=== PATIENT | male | born 1990 | race Caucasian/White ===

== ENCOUNTER 2023-04-10 18:12 | Emergency (ER) | payer OTHER, SELFPAY ==
[2023-04-10] VITALS (17 sets, daily range): BP systolic 123–149; BP diastolic 71–101; PULSE 62–90; RESP 14–24; TEMP 36.7; O2SAT 96–100; BMI 36.9
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
--- NOTE | 2023-04-10 18:32 | ECG_ITS ---
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
[2023-04-10] MEDS: ONDANSETRON 4 MG RAPDIS TABLET SL (18:46)
[2023-04-10] MEDS: MORPHINE SULFATE 2 MG/ML SYRINGE IM (18:46)
[2023-04-10 18:52] LABS: Basophils Percent Auto 0.4 % (0.2-2.0); Eosinophils Absolute Auto 0.3 10^3/uL (0.0-0.7); Eosinophils Percent Auto 3.1 % (0.9-7.0); Hematocrit 45.2 % (42.0-54.0); Hemoglobin 15.2 g/dL (14.0-18.0); Immature Granulocytes Abs Auto 0.03 10^3/uL (0.00-0.03); Immature Granulocytes Pct Auto 0.3 % (0.0-0.5); Lymphocytes Absolute Auto 2.6 10^3/uL (1.2-3.8); Lymphocytes Percent Auto 28.2 % (20.5-60.0); Mean Corpuscular HGB Conc 33.6 g/dL (29.9-35.2); Mean Corpuscular Hemoglobin 29.3 pg (25.9-34.0); Mean Corpuscular Volume 87.3 fL (80.0-94.0); Mean Platelet Volume 10.5 fL (9.5-13.5); Monocytes Absolute Auto 0.6 10^3/uL (0.3-0.8); Monocytes Percent Auto 6.8 % (1.7-12.0); Neutrophils Absolute Auto 5.6 10^3/uL (1.4-6.5); Neutrophils Percent Auto 61.2 % (43.0-75.0); Platelet Count 243 10^3/uL (150-450); Red Blood Count 5.18 10^6/uL (4.70-6.10); Red Cell Distribution Width 13.4 % (11.0-15.0); White Blood Count 9.2 10^3/uL (4.0-11.0)
[2023-04-10 19:14] LABS: Anion Gap 11.6; BUN Creatinine Ratio 14.9; Carbon Dioxide 26.9 mmol/L (21.0-32.0); Chloride 106 mmol/L (98-107); Estimated GFR (African America >60 (>=60); Estimated GFR (Non-African Ame >60 (>=60); Glucose 97 mg/dL (74-106); Potassium 3.5 mmol/L (3.5-5.1); Sodium 141 mmol/L (136-145); Troponin I High Sensitivity 6.7 pg/mL (4.0-76.1)
[2023-04-10] MEDS: KETOROLAC TROMETHAMINE 30 MG/ML VIAL 15 MG IM (21:15)
[2023-04-10] MEDS: ORPHENADRINE 60 MG/ 2 ML VIAL IM (21:16)
== END 2023-04-10 21:24 | disposition home or self-care (01) ==
PROVIDERS: Physician Assistant; Emergency Provider Emergency Medicine; PCP Family Medicine
DX: S46.812A Strain of other muscles, fascia and tendons at shoulder and upper arm level, left arm, initial encounter (principal); V49.9XXA Car occupant (driver) (passenger) injured in unspecified traffic accident, initial encounter
CPT/HCPCS: 36415; 70450; 72125; 80048; 83880; 84484; 85025; 93005; 96372; 99285